=== PATIENT | male | born 1950 | race Caucasian/White ===

== ENCOUNTER 2019-06-27 10:25 | Outpatient (CLI) | payer BC ==
--- NOTE | 2019-06-27 11:18 | RAD ---
EXAM: 5 views of the cervical spine HISTORY: Left cervical radiculopathy COMPARISON: None FINDINGS: AP, lateral, oblique, and open mouth odontoid views of the cervical spine shows normal heig ht and alignment of the vertebral bodies and intervertebral discs without fracture or subluxation. Moderate osteophytes are seen in the lower cervical spine. No prevertebral soft tissue swelling is se en. Alignment is unchanged with flexion and extension. 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
== END 2019-06-27 10:26 | disposition home or self-care (01) ==
LOC: BICRAD 10:25
PROVIDERS: ATTEND Chiropractor
DX: M47.22 Other spondylosis with radiculopathy, cervical region (principal)
CPT/HCPCS: 72050

== ENCOUNTER 2021-04-25 19:41 | Emergency (ER) | payer OTHER, BC ==
[2021-04-25] MEDS ORDERED: Fentanyl 100 MCG/2 ML VIAL ONE (20:35)
[2021-04-25] MEDS ORDERED: Ketamine 50 MG/ML (10ML VIAL) ONE (20:48)
[2021-04-25] MEDS ORDERED: Ondansetron PF 4 MG/2 ML Vial ONE ×3 (20:49→21:51)
== END 2021-04-25 22:15 | disposition home or self-care (01) ==
LOC: ERS 19:41
DX: S43.005A Unspecified dislocation of left shoulder joint, initial encounter (principal); I10 Essential (primary) hypertension; Z87.891 Personal history of nicotine dependence; Z79.899 Other long term (current) drug therapy; W01.0XXA Fall on same level from slipping, tripping and stumbling without subsequent striking against object, initial encounter
CPT/HCPCS: 23650; 96374; 96375; 96376; 99152; J2405; J3010

== ENCOUNTER 2021-05-14 12:10 | Outpatient (CLI) | payer BC | END 2021-05-14 12:11 | disposition home or self-care (01) | LOC: BICMRI 12:10 | PROVIDERS: ATTEND Orthopaedic Surgery | DX: S43.005A Unspecified dislocation of left shoulder joint, initial encounter (principal); M75.102 Unspecified rotator cuff tear or rupture of left shoulder, not specified as traumatic; S43.492A Other sprain of left shoulder joint, initial encounter; M62.89 Other specified disorders of muscle | CPT/HCPCS: 70210 ==

== ENCOUNTER 2021-07-21 08:47 | Outpatient (CLI) | payer BC | END 2021-07-21 08:48 | disposition home or self-care (01) | LOC: BICULT 08:47 | PROVIDERS: ATTEND Physician Assistant | DX: R79.89 Other specified abnormal findings of blood chemistry (principal); R16.0 Hepatomegaly, not elsewhere classified; K76.0 Fatty (change of) liver, not elsewhere classified | CPT/HCPCS: 76705 ==

== ENCOUNTER 2023-08-02 13:18 | Outpatient (CLI) | payer MEDICARE, OTHER | END 2023-08-02 13:19 | disposition home or self-care (01) | LOC: BICRAD 13:18 | PROVIDERS: ATTEND Physician Assistant | DX: R05.9 Cough, unspecified (principal) | CPT/HCPCS: 71046; 80053; 80061; 83036; 85025 ==